=== PATIENT | female | born 1960 | race Caucasian/White ===

== ENCOUNTER 2022-08-02 22:40 | Emergency (ER) | payer SELFPAY ==
[2022-08-02 22:42] VITALS: BP 217/92; PULSE 80; RESP 18; TEMP 37.2; O2SAT 99; BMI 32.1
--- NOTE | 2022-08-02 22:48 | DI.RAD.S_ITS ---
PROCEDURE: XR CHEST 1V INDICATIONS: chest pain TECHNIQUE: One view of the chest was acquired. COMPARISON: None. FINDINGS: Surgical changes and devices: None. Lungs and pleura: Lungs are clear. No pleural effusions or pneumothorax. Mediastinum: Mediastinal contours appear within normal limits. There are probable mitral annular calcifications. Heart size is normal. Bones and chest wall: No suspicious bony lesions. Overlying soft tissues appear unremarkable. IMPRESSION: 1. No acute cardiopulmonary disease. Dictated by: Raji Barry M.D. on 08/03/2022 at 0:23 Approved by: Raij Barry M.D. on 08/03/2022 at 0:23
[2022-08-02 23:13] LABS: Add Manual Diff / Slide Review NO; Basophils Absolute Auto 100 /uL (0-100); Basophils Percent Auto 0.6 % (0-2); Eosinophils Absolute Auto 200 /uL (0-450); Eosinophils Percent Auto 2.1 % (2-4); Hematocrit 40.1 % (36-46); Hemoglobin 13.4 g/dL (12.0-16.0); Lymphocytes Absolute Auto 2300 /uL (1100-4500); Lymphocytes Percent Auto 27.3 % (25-40); Mean Corpuscular HGB Conc 33.5 % (30-36); Mean Corpuscular Hemoglobin 28.9 PG (26-34); Mean Corpuscular Volume 86.2 fL (80-100); Monocytes Absolute Auto 700 /uL (0-900); Monocytes Percent Auto 7.9 % (3-14); Neutrophils Absolute Auto 5300 /uL (1500-7000); Neutrophils Percent Auto 62.1 % (50-75); Platelet Count 296 X10^3/uL (150-400); Red Blood Cell Count 4.65 X10^6/uL (4.0-5.2); Red Cell Distribution Width 13.2 % (11.6-14.8); White Blood Cell Count 8.5 X10^3/uL (4.5-11.0)
[2022-08-02] MEDS: SODIUM CHLORIDE 0.9% 1,000 ML 150 ML IV (23:18)
[2022-08-02 23:23] LABS: Alanine Aminotransferase 25 IU/L (<35); Albumin 4.7 g/dL (3.5-5.0); Albumin Globulin Ratio 1.2 (1.0-2.8); Alkaline Phosphatase 66 U/L (38-126); Aspartate Aminotransferase 26 IU/L (14-36); BUN Creatinine Ratio 19.7 (6-22); Bilirubin Total 0.4 mg/dL (0.2-1.3); Blood Urea Nitrogen 14 mg/dL (7-17); Calcium 9.5 mg/dL (8.4-10.2); Carbon Dioxide 31 mmol/L (22-32); Chloride 101 mmol/L (98-107); Creatine Kinase 69 U/L (30-135); Estimated Glomerular Filt Rate > 60 mL/min (>60); Glucose 132 mg/dL (80-110); HEMOLYSIS < 15 (0-50); Lipase 136 U/L (23-300); Potassium 3.5 mmol/L (3.4-5.1); Sodium 140 mmol/L (137-145); Total Protein 8.7 g/dL (6.3-8.2)
[2022-08-02 23:34] LABS: NT-proBNP (BNP-Adult 18+) 399 pg/mL (<125)
[2022-08-02 23:35] LABS: Troponin I < 0.012 ng/mL (0.01-0.034)
[2022-08-03] MEDS: HYDRALAZINE 20 MG/ML VIAL 10 MG IV
[2022-08-03 00:25] VITALS: BP 169/74; PULSE 81
--- NOTE | 2022-08-03 00:32 | ED.GENADULT ---
HPI - General Adult General Chief complaint: Hypertension Stated complaint: elevated blood pressure Time Seen by Provider: 08/02/22 22:43 Source: patient and family Mode of arrival: Ambulatory History of Present Illness HPI narrative: 62F nonsmoker with history of hypertension presents with her in the chief complaint of a rising blood pressure over the course of the day. She denies any change in her dosing, medications or regimen. Her blood pressure medications which include metoprolol, benazepril and hydrochlorothiazide are managed by her primary care provider. She states that she historically runs in the 130s over 70s and over the course of the day she is gotten as high as the 200s over 100s. She had some vague had pressure earlier today. She denies any dizziness, weakness or lightheadedness. She denies any blurred vision or trouble with speech. She denies chest pain but states she can feel her pulse in her chest. She is had no nausea, vomiting or diarrhea. Related Data Previous Rx's Medication Instructions Recorded methocarbamol 500 mg tablet See Rx Instructions PO Q6-8H PRN 12/26/21 muscle spasm #30 tabs hydralazine 10 mg tablet 10 mg PO QID #30 tabs 08/03/22 Allergies Allergy/AdvReac Type Severity Reaction Status Date / Time iodine Allergy Severe Difficulty Verified 08/02/22 23:07 Breathing shellfish derived Allergy Severe Difficulty Verified 08/02/22 23:07 Breathing Review of Systems Review of Systems Narrative: GENERAL: Denies chills, fatigue, malaise, fever, sweats. HEENT: Denies sinus pain, ear pain, sore throat, difficulty swallowing, dizziness. RESPIRATORY: Denies dyspnea, cough, wheezing, hemoptysis, sputum. CARDIOVASCULAR: See HPI GASTROINTESTINAL: Denies nausea, vomiting, abdominal pain, diarrhea, constipation, melena. : Denies dysuria, frequency, incontinence, hematuria, urinary retention. MUSCULOSKELETAL: denies weakness, joint pain, or bony pain SKIN: Denies rash, skin lesions, or other NEUROLOGIC: See HPI PSYCHIATRIC: No concerning psychosocial issues. 12 point review of systems is negative except for those stated above Patient History Social History Smoking Status: Never smoker Smoking Status: Never smoker alcohol intake frequency: 0-2 drinks per day Substance Use Type: does not use Exam Narrative Exam Narrative: GENERAL: [62] year old patient appears stated age. Well-developed patient, in mild distress. HEAD: Atraumatic. Normocephalic. EYES: Pupils equal round and reactive. Extraocular motions intact. No scleral icterus. No injection or drainage. ENT: Nose without bleeding, purulent drainage. Throat without erythema, tonsillar hypertrophy or exudate. Airway patent. NECK: Trachea midline. Non tender CARDIOVASCULAR: Regular rate and rhythm without murmurs, gallops, or rubs. RESPIRATORY: Clear to auscultation. Breath sounds equal bilaterally. No wheezes, rales, or rhonchi. GASTROINTESTINAL: Abdomen soft, non-tender, nondistended. EXTREMITIES: No edema or joint tenderness. BACK: Nontender without deformity or crepitance. No flank tenderness. NEURO: AOx3. SKIN: No rash or erythema of visible areas Initial Vital Signs Initial Vital Signs: Vital Signs Temperature 98.9 F 08/02/22 22:42 Pulse Rate 80 08/02/22 22:42 Respiratory Rate 18 08/02/22 22:42 Blood Pressure 217/92 H 08/02/22 22:42 Pulse Oximetry 99 08/02/22 22:42 Oxygen Delivery Method Room Air 08/02/22 22:42 Course Orders Ordered: ED Orders 08/02/22 22:48 XR chest 1V Stat EKG-12 Lead Stat 08/02/22 22:50 Complete Blood Count AUTO DIFF Stat Comprehensive Metabolic Panel Stat Lipase Stat NT-proBNP (BNP-Adult 18+) Stat Troponin & CK Cardiac Panel Stat Discontinued Medications Hydralazine HCl (Hydralazine 20 Mg/Ml Vial) 10 mg IV NOW ONE Stop: 08/02/22 23:38 Last Admin: 08/03/22 00:00 Dose: 10 mg Documented By: BRITTANY Sodium Chloride (Normal Saline 0.9%) 1,000 mls @ 150 mls/hr IV CONT CHAZ Last Infusion: 08/03/22 01:03 Dose: 0 mls/hr Documented By: Admin: 08/02/22 23:18 Dose: 150 mls/hr Documented By: BRITTANY Reevaluation(s) Reevaluation #1: Initial blood pressure was quite high, after labs have been drawn we waited a bit and her blood pressure dropped to 198. She states that with this change she did have improved symptoms but still felt a little whooshing in her head. Reevaluation #2: Patient given hydralazine 10 mg IV which brings blood pressure down to 169. She is essentially asymptomatic at this point Vital Signs Vital signs: Vital Signs - 8 hr 08/02/22 22:42 08/03/22 00:25 08/03/22 01:05 Temperature 98.9 F Pulse Rate 80 81 81 Respiratory Rate 18 16 Blood Pressure 217/92 H 169/74 H 160/70 H Pulse Oximetry 99 97 Oxygen Delivery Method Room Air Room Air Medical Decision Making Lab Data 08/02/22 22:50 08/02/22 22:50 Labs: Lab Results 08/02/22 08/02/22 08/02/22 Range/Units 22:50 22:50 22:50 WBC 8.5 (4.5-11.0) X10^3/uL RBC 4.65 (4.0-5.2) X10^6/uL Hgb 13.4 (12.0-16.0) g/dL Hct 40.1 (36-46) % MCV 86.2 (80-100) fL MCH 28.9 (26-34) PG MCHC 33.5 (30-36) % RDW 13.2 (11.6-14.8) % Plt Count 296 (150-400) X10^3/uL Neut % (Auto) 62.1 (50-75) % Lymph % (Auto) 27.3 (25-40) % [place] % (Auto) 7.9 (3-14) % Eos % (Auto) 2.1 (2-4) % Baso % (Auto) 0.6 (0-2) % Neut # (Auto) 5300 (7136-5057) /uL Lymph # (Auto) 2300 (1916-2699) /uL [place] # (Auto) 700 (0-900) /uL Eos # (Auto) 200 (0-450) /uL Baso # (Auto) 100 (0-100) /uL Sodium 140 (137-145) mmol/L Potassium 3.5 (3.4-5.1) mmol/L Chloride 101 (98-107) mmol/L Carbon Dioxide 31 (22-32) mmol/L BUN 14 (7-17) mg/dL Creatinine 0.71 (0.52-1.04) mg/dL Estimated GFR > 60 (>60) mL/min BUN/Creatinine Ratio 19.7 (6-22) Glucose 132 H (80-110) mg/dL Calcium 9.5 (8.4-10.2) mg/dL Total Bilirubin 0.4 (0.2-1.3) mg/dL AST 26 (14-36) IU/L ALT 25 (<35) IU/L Alkaline Phosphatase 66 (38-126) U/L Total Creatine Kinase 69 (30-135) U/L CK-MB (CK-2) TNP CK-MB (CK-2) Rel Index TNP Troponin I < 0.012 (0.01-0.034) ng/mL NT-Pro-B Natriuret Pep 399 H (<125) pg/mL Total Protein 8.7 H (6.3-8.2) g/dL Albumin 4.7 (3.5-5.0) g/dL Globulin 4.0 (1.7-4.1) g/dL Albumin/Globulin Ratio 1.2 (1.0-2.8) Lipase 136 (23-300) U/L MDM Narrative Medical decision making narrative: [62] year old patient presents with largely asymptomatic hypertension, some whooshing in her ears and can feel her heartbeat Multiple etiologies for patient's symptoms considered including, but not limited to: [Hypertensive emergency, electrolyte abnormality, renal failure versus other] Prior Charts reviewed in our EMR Primary Historian: patient Labs reviewed and interpreted by myself: No significant abnormal findings requiring specific intervention Imaging reviewed: No acute cardiopulmonary disease Patient's symptoms completely resolve improved blood pressure. She is given hydralazine and takes her blood pressure down to the 160s, she denies any headache or blurred vision or chest pain or shortness of breath. She denies any significant change in medications or diet, cause of her spike pressure is unclear. Patient's symptoms improved over duration of stay with above-stated therapies. Findings and discharge diagnosis discussed with patient/family followed by verbalization of understanding Return precautions discussed with patient/family whom verbalize understanding of diagnosis and plan Discharge Plan Departure Patient Disposition: Home Clinical Impression: Hypertension Instructions: DI for High Blood Pressure Activity Restrictions/Additional Instructions: *You have been diagnosed with [high blood pressure] *What to do: *Please continue to take your regular medications as directed. [x ] New medication prescriptions sent to your pharmacy: [[facility] [ ] New medication written as a paper prescription [ ] No new medications given *Please follow up with your primary care provider in 2-3 days, call for an appointment. Let them know you were seen in the Emergency Department and that we ask that you be seen in follow up. We will electronically transmit a record of today's note if your PCP is in our system *If you do not have a primary care provider please contact the [facility] Resource line at [phone]. They will ask some questions about your medical history and help get you set up with a doctor in the community. *Return to Emergency Department if you should have any new, worsening or concerning symptoms, such as [fever greater than 101 F, shaking chills, worsening pain, persistent vomiting or other bothersome symptoms] Prescriptions: New hydralazine 10 mg tablet 10 mg PO QID Qty: 30 0RF No Action methocarbamol 500 mg tablet See Rx Instructions PO Q6-8H PRN (Reason: muscle spasm) Qty: 30 1RF Rx Instructions: 1-3 tablets PO every 6-8 hours PRN; Referrals: Nickolas Adams MD [Primary Care Provider] - Stand Alone Forms: Patient Portal/API
[2022-08-03 01:05] VITALS: BP 160/70; PULSE 81; RESP 16; O2SAT 97
== END 2022-08-03 01:13 | disposition home or self-care (01) ==
PROVIDERS: Emergency Provider Emergency Medicine; PCP Family Medicine
DX: I10 Essential (primary) hypertension (principal); R07.9 Chest pain, unspecified
CPT/HCPCS: 36415; 71045; 80053; 82550; 83690; 83880; 84484; 85025; 93005; 93010; 96361; 96374; 99284; J0360